=== PATIENT | female | born 1975 | race African-American/Black ===

== ENCOUNTER 2016-10-11 08:49 | Observation (INO) | payer OTHER ==
[~2016-10-11] VITALS: Ht 170.2 cm; Wt 94.0 kg
[2016-10-11] MEDS ORDERED: MOTRIN600 MG PO (09:29)
[2016-10-11] MEDS ORDERED: PROCARDIA XL30 MG PO (09:30)
[2016-10-11] MEDS ORDERED: OXAYDO5 MG PO (09:30)
[2016-10-11] MEDS ORDERED: CLARITIN,ALAVAR10 MG PO (09:31)
[2016-10-11] MEDS ORDERED: BENADRYL25 MG PO (09:32)
[2016-10-11 09:46] LABS: HEMATOCRIT 31.5 % (36.0-46.0); MCH 27.3 PG (29.0-34.0); MCHC 32.7 G/DL (30.0-36.0); MCV 83.6 FL (83-99); MEAN PLAT.VOLUME 10.5 uM^3 (9.5-12.4); PLATELET COUNT 279 K/uL (156-360); RBC DIS.WIDTH-CV 15.3 % (11.8-14.6); RBC DIS.WIDTH-SD 46.5 % (39-53); RED BLOOD COUNT 3.77 M/uL (3.80-5.20); WHITE BLOOD COUNT 11.4 K/uL (4.1-10.2)
[2016-10-11 09:56] LABS: CHLORIDE 108 mEq/L (99-109); POTASSIUM 2.9 mEq/L (3.7-5.4); SODIUM 143 mEq/L (136-147)
[2016-10-11 09:57] LABS: MAGNESIUM 1.6 mg/dL (1.3-2.7)
[2016-10-11 09:59] LABS: GLUCOSE 85 mg/dL (70-99)
[2016-10-11 10:00] LABS: ANION GAP 10 MEQ/L (2-14)
[2016-10-11 10:01] LABS: TOTAL BILIRUBIN 0.6 mg/dL (0.0-1.0)
[2016-10-11 10:02] LABS: ALKALINE PHOSPHATASE 90 IU/L (3-129)
[2016-10-11 10:03] LABS: GFR ESTIMATE (CALCULATED) > 59 mL/min/
[2016-10-11 10:04] LABS: DIRECT BILIRUBIN 0.3 mg/dL (0.0-0.3); UREA NITROGEN (BUN) 8 mg/dL (9-23)
[2016-10-11] MEDS ORDERED: SIMETHICONE80 MG PO (14:21)
[2016-10-11 17:21] VITALS: BP 162/97
[2016-10-11 18:44] VITALS: BP 163/95
[2016-10-11 19:17] VITALS: BP 153/90
[2016-10-11 22:29] VITALS: BP 115/70
[2016-10-12 03:09] VITALS: BP 127/71
[2016-10-12 05:33] VITALS: BP 150/86
[2016-10-12 07:37] LABS: ALKALINE PHOSPHATASE 83 IU/L (3-129); ANION GAP 12 MEQ/L (2-14); CHLORIDE 104 MEQ/L (99-109); GFR ESTIMATE (CALCULATED) > 59 mL/min/; GLUCOSE 86 mg/dL (70-99); POTASSIUM 2.9 MEQ/L (3.7-5.4); SAMPLE HEMOLYSIS CHECK 0; SAMPLE ICTERIC CHECK 0; SAMPLE LIPEMIA CHECK 0; SODIUM 140 MEQ/L (136-147); TOTAL BILIRUBIN 0.7 MG/DL (0.0-1.0); UREA NITROGEN (BUN) 7 mg/dL (9-23)
[2016-10-12 08:33] VITALS: BP 140/94
== END 2016-10-12 09:26 | disposition home or self-care (01) ==
LOC: EME 08:49 → EDOF 14:14 → 2EASTP 17:14
PROVIDERS: Emergency Medicine; Obstetrics & Gynecology Obstetrics
DX: O99.43 Diseases of the circulatory system complicating the puerperium (principal); R00.0 Tachycardia, unspecified; O11.5 Pre-existing hypertension with pre-eclampsia, complicating the puerperium; Z86.32 Personal history of gestational diabetes
CPT/HCPCS: 80048; 80053; 80076; 83735; 85027; 93005; 99281; 99285; G0378; J3480; J7030